=== PATIENT | male | born 1940 | race Caucasian/White ===

== ENCOUNTER → 2018-10-29 | Outpatient (CLI) | payer MEDICARE, OTHER, SELFPAY ==
[2018-07-03 10:23] VITALS: BMI 30.9
--- NOTE | 2018-10-29 12:15 | RAD_ITS ---
STUDY: X-RAY CHEST REASON FOR EXAM: Male, 77 years old. Palpable mass under left arm pit TECHNIQUE: Frontal and lateral views of the chest. COMPARISON: None. FINDINGS: The lungs are clear and expanded. There is no demonstrated pleural abnormality. Normal size heart. Normal mediastinum and santino. Normal visualized pulmonary arteries. There is atherosclerotic tortuosity of the aortic arch and descending thoracic aorta. Normal visualized thoracic spine. Normal visualized ribs, clavicles, and shoulders. There is no demonstrated abnormality of the visualized soft tissue structures of the upper abdomen. RAD/Chest PA and Lateral IMPRESSION: No acute chest disease. Electronically Signed: Herson Cruz MD at 17:19 EDT , Service support ,
== END | disposition home or self-care (01) ==
LOC: HPRAD 12:09
PROVIDERS: Family Provider Nurse Practitioner; PCP Nurse Practitioner; Referring Provider Nurse Practitioner; Visit Provider Nurse Practitioner
DX: R22.32 Localized swelling, mass and lump, left upper limb (principal)
CPT/HCPCS: 71046

== ENCOUNTER → 2019-11-18 06:38 | Outpatient (CLI) | payer MEDICARE, OTHER, SELFPAY ==
[2019-09-29 08:40] VITALS: BMI 30.5
--- NOTE | 2019-11-18 06:46 | CT_ITS ---
STUDY: CT BRAIN WITHOUT CONTRAST REASON FOR EXAM: Male, 78 years old. AHJUA, HAD EPISODE OF SLURRED SPEECH, DB, HEART STENT RADIATION DOSAGE (If Supplied By Facility): CTDIvol = ( 44.99 ) mGy, DLP = ( 779.24 ) mGycm TECHNIQUE: Transaxial CT imaging of the brain was performed without administration of intravenous contrast material. Individualized dose optimization techniques were used for this CT. COMPARISON: No relevant priors. FINDINGS: Normal soft tissue structures. Normal calvarium. Calcification of the cavernous carotids. Mild atrophy and moderate periventricular white matter ischemic changes.. Normal basal ganglia and thalami. Normal brainstem. Normal cerebellum. Empty sella deformity likely of no significance There is no intracranial hemorrhage. There are no findings of an acute ischemic infarction. Postsurgical changes involving the orbits. There is polypoid mucosal thickening of the maxillary sinuses bilaterally and mild mucosal thickening of the right ethmoid air cells.. CT/Brain/Head without Contrast IMPRESSION: Atrophy and periventricular white matter ischemic changes. No evidence for acute bleed. If concern for acute infarct MRI recommended Electronically Signed: Filiberto English MD at 18:50 EDT , Service support ,
--- NOTE | 2019-11-18 07:00 | MRI_ITS ---
STUDY: MRA OF THE HEAD WITHOUT CONTRAST REASON FOR EXAM: Male, 78 years old. headaches slurred speech x 1 day, resolved now TECHNIQUE: 3-D [id number] (TOF) imaging was performed with MIPs. The study was performed unenhanced. COMPARISON: None. FINDINGS: Normal bilateral petrous carotid arteries. Normal right cavernous carotid artery with a normal supraclinoid bifurcation. Normal left cavernous carotid artery with a normal supraclinoid bifurcation. Normal right A1 segments of the anterior cerebral artery. Normal left A1 segments of the anterior cerebral artery. Anterior communicating artery not visualized consistent variant. Normal bilateral A2 segments of the anterior cerebral arteries. Normal right M1 and M2 segments of the middle cerebral arteries, with a normal M1 bifurcation. Normal left M1 and M2 segments of the middle cerebral arteries, with a normal M1 bifurcation. Posterior communicating arteries are not visualized consistent with normal variant Normal bilateral vertebral arteries. Normal basilar artery with a normal basilar bifurcation. The visualized bilateral superior cerebellar (SCA) arteries are normal. Normal bilateral P1, P2 and visualized P3 segments of the posterior cerebral arteries. There is no demonstrated aneurysm of the [place]. There is no major vessel occlusion or hemodynamically significant stenosis. There is no demonstrated abnormality of the visualized brain. MRI/MRA Head ONLY without Contrast IMPRESSION: Normal MRA of the head Electronically Signed: Filiberto English MD at 18:48 EDT , Service support ,
== END ==
PROVIDERS: PCP Nurse Practitioner; Referring Provider Nurse Practitioner; Visit Provider Nurse Practitioner
DX: R51 Headache (principal)
CPT/HCPCS: 70450; 70544

== ENCOUNTER → 2019-12-10 | Outpatient (CLI) | payer MEDICARE, OTHER, SELFPAY ==
[2019-09-29 08:40] VITALS: BMI 30.5
--- NOTE | 2019-12-10 14:36 | MRI_ITS ---
We are attempting to reach an attending provider to discuss findings. An addendum with communication details will be sent when the communication is complete. STUDY: MRI BRAIN WITH AND WITHOUT CONTRAST REASON FOR EXAM: Male, 79 years old. CHANGE IN SPEECH AFTER HAVING BAD HEADACHE, CONFUSION TECHNIQUE: Standardized multiplanar fat and water weighted pulse sequences were obtained. IV 19 CC DOTAREM was administered for the contrast portion of the examination. COMPARISON: MRA head and CT head November 18, 2019 and MR brain October 17, 2012 FINDINGS: There is moderate cerebral atrophy with widening of the extra-axial spaces and ventricular dilatation. There are multiple white matter hyperintensities, distributed throughout the deep white matter tracts of the cerebral hemispheres, consistent with moderate chronic white matter ischemic changes. There may be magnetic inhomogeneity along the posterior parietal cortex. Questionable punctate focus of restricted diffusion left posterior occipital cortex. Normal bilateral basal ganglia. Normal thalami. There is no extra-axial fluid accumulation. Normal flow voids within the major intracranial circulation suggesting patency by spin echo criteria. Normal venous enhancement. There is no enhancing intra-axial or extra-axial abnormality. Normal sella turcica, pituitary gland, infundibular stalk, optic chiasm and hypothalamus. Normal tectal plate and pineal gland. Normal midbrain, tyesha and medulla. Normal cerebellum. Normal basal cisterns. Normal bilateral temporal bones. Normal bilateral internal auditory canals. No demonstrated orbital abnormality, within the constraints of a routine brain study. Bilateral maxillary polyps. Normal calvarium and skull base. Normal visualized soft tissue structures. Normal visualized upper cervical spine. MRI/Brain W/WO Contrast IMPRESSION: Magnetic inhomogeneity versus minute acute/subacute infarct left posterior parietal cortex. Electronically Signed: Wenceslao De Leon MD at 16:28 EDT , Service support ,
== END | disposition home or self-care (01) ==
LOC: MRI 14:26
PROVIDERS: PCP Nurse Practitioner; Referring Provider Nurse Practitioner; Visit Provider Nurse Practitioner
DX: R47.89 Other speech disturbances (principal)
CPT/HCPCS: 70553; A9575

== ENCOUNTER → 2020-10-05 | Outpatient (CLI) | payer MEDICARE, OTHER, SELFPAY ==
[2020-04-07 11:15] VITALS: BMI 31.0
[2020-10-05 19:36] LABS: M R Staph aureus DNA By PCR Negative (Negative); Probe Check PASS; Staph aureus DNA By PCR POSITIVE (Negative)
== END | disposition home or self-care (01) ==
PROVIDERS: Visit Provider Podiatrist
DX: L03.032 Cellulitis of left toe (principal)
CPT/HCPCS: 87070; 87075; 87205; 87640

== ENCOUNTER → 2020-10-29 06:26 | Outpatient (CLI) | payer MEDICARE, OTHER, SELFPAY ==
[2020-10-08 10:42] VITALS: BMI 31.1
--- NOTE | 2020-10-29 12:56 | STRESSREP ---
Stress Test Report Date: 10-29-2020 Procedure: Exercise tolerance test/imaging study Indications: Atrial fibrillation; CAD; PCI; shortness of breath/dyspnea; fatigue Consent: Per the patient Procedure: The patient exercised on a Jamie protocol for 6 minutes completing Stage II achieving a peak heart rate of 126 bpm (88% predicted maximal heart rate) with a peak blood pressure 198/70 mmHg and a peak MET capacity of 7 METs. The baseline ECG demonstrated sinus versus ectopic atrial bradycardia. The peak exercise ECG demonstrated somatic/motion artifact with no obvious ECG changes. There was a rare PAC/PVC during exercise and a rare PAC during recovery. The functional capacity was considered average. There was no complaint of chest discomfort during exercise or recovery. The examination was discontinued secondary to dyspnea. Impression: 1. Technically adequate (percent predicted maximal heart rate greater than 85%) exercise tolerance test 2. Peak exercise ECG with somatic/motion artifact with no obvious ECG changes 3. There was a rare PAC/PVC during exercise and a rare PAC during recovery 4. Nuclear images pending Myocardial perfusion imaging study: Technique: The patient was injected with 14.7 mCi of technetium 99m Cardiolite and subsequently rest SPECT Cardiolite nuclear imaging was obtained in the horizontal long, vertical long, and short axis views. The patient exercised on a Jamie protocol for 6 minutes completing Stage II achieving a peak heart rate of 126 bpm (88% predicted maximal heart rate) with a peak blood pressure 198/70 mmHg and a peak MET capacity of 7 METs. The patient was injected with 44.6 mCi of technetium 99m Cardiolite and subsequently stress SPECT Cardiolite nuclear imaging was obtained in the horizontal long, vertical long, and short axis views. A gated Cardiolite study at peak stress was obtained. Interpretation: Rest and stress SPECT Cardiolite nuclear imaging status post realignment, normalization, and attenuation correction, demonstrates the appearance of a small area of subtle diminished tracer uptake near the apical segments without significant change between rest and stress. There is end systolic thickening and brightening. The gated Cardiolite study demonstrates myocardial thickening and inward wall motion. The reported LVEF is 59%. Impression: 1. Rest and stress SPECT Cardiolite nuclear imaging demonstrate myocardial perfusion changes appearing compatible defects of physiologic apical thinning with no myocardial perfusion changes considered diagnostic for associated stress-induced myocardial ischemia. 2. The gated Cardiolite study reports an LVEF of 59%. This note was generated with Dragon dictation software. It may contain incorrect words, spelling, and punctuation that were not noted in checking the note before signing.
== END ==
PROVIDERS: PCP Nurse Practitioner; Referring Provider Nurse Practitioner Family; Visit Provider Nurse Practitioner Family
DX: I25.10 Atherosclerotic heart disease of native coronary artery without angina pectoris (principal); I48.0 Paroxysmal atrial fibrillation; E78.2 Mixed hyperlipidemia; Z95.5 Presence of coronary angioplasty implant and graft
CPT/HCPCS: 78452; 93017; A9500; A4216